=== PATIENT | male | born 1980 ===

== ENCOUNTER 2024-08-20 01:22 | Emergency (ER) | payer OTHER ==
[~2024-08-20] VITALS: Ht 180.3 cm; Wt 77.3 kg
[2024-08-20 01:34] VITALS: BP 152/102; PULSE 98; RESP 16; TEMP 98.1; O2SAT 100
[2024-08-20] MEDS: PERMETHRIN 1% 60 ML LOTION TP ONE (03:20)
[2024-08-20] MEDS: OLANZapine 5 MG TABLET PO ONE (03:20)
== END 2024-08-20 04:30 | disposition home or self-care (01) ==
LOC: EMS 01:22
DX: F20.9 Schizophrenia, unspecified (principal); F15.10 Other stimulant abuse, uncomplicated; B85.2 Pediculosis, unspecified; I10 Essential (primary) hypertension; F17.210 Nicotine dependence, cigarettes, uncomplicated
CPT/HCPCS: 99283; 99284